=== PATIENT | male | born 1940 | race Caucasian/White ===

== ENCOUNTER 2017-06-11 14:10 | Day surgery (SDC) | payer MEDICARE ==
[~2017-06-11] VITALS: Ht 177.8 cm; Wt 130.0 kg
[~2017-06-11 14:10] MED LIST: ACET325C PO; ATOR20TA PO; DOCU240C41 PO; DOXY100C2 PO; ERGO2000 PO; LOSA1TAB69 PO; Lactated Ringer's 1,000 ML IV ONE; OMEP20CA11 PO
[2017-06-11] MEDS ORDERED: fentaNYL-PF 50 mCg/mL 2 mL Inj ONE (14:11)
[2017-06-11] MEDS ORDERED: Propofol 10 mg/mL 20 mL Inj ONE (14:11)
[2017-06-11 14:31] VITALS: BP 118/72; PULSE 74; RESP 16; O2SAT 96
--- NOTE | 2017-06-11 16:09 | PCM.ENDEGD ---
EGD Date of Service: Jun 11, 2017 Physician Antonio Ashby MD Pre Procedure Diagnosis: Abdominal pain Post Procedure Dx & Findings: Gastric ulcer and duodenal ulcer and duodenal polyp Procedure Esophagogastroduodenoscopy PROCEDURE IN DETAIL: After proper sedation, Olympus video endoscope was inserted into patient's mouth and esophagus was successfully intubated. Scope introduced esophagus. Esophagus showed normal shiny whitish mucosa consistent with squamous cell component. Z line was intact at 45 cm from the incisors. Scope further advanced to the stomach. Stomach show proximal gastritis as well as antral gastritis cauterized by edema and redness. Patient also had 1 cm superficial ulcer between the body and the antrum of the stomach. Clean-based. Multiple biopsies obtained on the ulcer as well as the gastritis.. Cardia fundus body antrum pylorus were all visualized. Retroflexion was done. Stomach was easily inflated and deflatable using air. Scope further events to the distal duodenum. The second part of the duodenum had a 3 mm superficial ulcer. This was biopsied. In the distal duodenum there was a 1 mm polyp which was removed completely using cold forceps. Impression Gastric ulcer and gastritis Duodenal ulcer Duodenal polyp Recommendation Stop NSAIDs Prilosec 20 once a day Presedation Assessment Risks and Benefits Informed consent was obtained from the patient after all risks and benefits including but not limited to drug reaction, infection, pain, bleeding, perforation, as well as alternatives were discussed. Patient monitoring Continuous pulse oximetry, cardiac monitoring, blood pressure monitoring, IV access, and oxygen at 2L per nasal cannula. Complications There were no periprocedural complications identified. Post Procedure Plan Post Procedure Recommendations 1. Restrict activities today. 2. Resume normal activities in the morning. 3. Resume medications. 4. GERD behavioral modification: - Avoid fatty, acidic, spicy, large meals - Do not lie down after meals - Do not eat or drink anything for at least 2 1/2 hours before going to bed at night - Discontinue tobacco and alcohol - Decrease or avoid caffeine - Avoid chocolate and mints - Decrease weight - Avoid aspirin and non steroidal anti-inflammatory agents (NSAID) such as Aleve, Advil, Mobic, Naproxen, Ibuprofen, etc 5. Add proton pump inhibitor. Take 30 minutes before 1st meal of the day. 6. Patient informed of normal post procedure side effects as bloating, drowsiness, blood streaking in the stool 7. If gastric biopsy reveal H.pylori, continue with appropriate treatment 8. If small bowel biopsy reveals celiac, continue with appropriate treatment 9. Please don't hesitate to call me with any questions Antonio Ashby MD Jun 11, 2017 16:09
--- NOTE | 2017-06-11 16:11 | PCM.ENDCOL ---
Colonoscopy Date of Service: Jun 11, 2017 Physician Antonio Ashby MD Pre Procedure Diagnosis: Screening Post Procedure Dx & Findings: Polyps hemorrhoids Procedure Colonoscopy PROCEDURE IN DETAIL: Prep adequate Withdrawal time 18 minutes After unremarkable rectal examination the Olympus video colonoscope was inserted patient's anal canal and was advanced to cecum. Landmarks were identified including the ileocecal valve and appendiceal orifice. Scope was withdrawn systematically. Visualized colonic mucosa showed healthy shiny mucosa with normal healthy-appearing vasculature. In the transverse colon, there were 2 polyps. One was 1 mm in size which was removed with cold completely using cold forceps. The other one was 3 mm in size which was removed completely using cold snare. In the descending colon, there was a 3 mm polyp which was removed completely using cold snare. In the sigmoid colon there was a 1 mm polyp which was removed completely using cold forceps. There was a 1 cm polyp which was removed completely using hot snare. In the rectum retroflexion was done which showed hemorrhoids. Anal canal was inspected carefully on the way out and hemorrhoids noted. Impression Polyp 5 status post complete removal. Largest polyp was 1 cm in size. Hemorrhoids Recommendation Repeat colonoscopy 3 years Presedation Assessment Risks and Benefits Informed consent was obtained from the patient after all risks and benefits including but not limited to drug reaction, infection, pain, bleeding, perforation, as well as alternatives were discussed. Patient monitoring Continuous pulse oximetry, cardiac monitoring, blood pressure monitoring, IV access, and oxygen at 2L per nasal cannula. Complications There were no periprocedural complications identified. Post Procedure Plan Post Procedure Recommendations 1. Restrict activities today. 2. Resume normal activities in the morning. 3. Resume medications. 4. Patient informed of normal post procedure side effects as bloating, drowsiness, blood streaking in the stool. 5. average risk CRCS. If colon polyps come back as: -Hyperplastic- can repeat colonoscopy in 10 years -Tubular adenoma- repeat colonoscopy in 5 years -Tubulovillous/villous adenoma- repeat colonoscopy in 3 years -If any dysplasia- return to clinic as soon as possible 6. Please don't hesitate to call me with any questions. Antonio Ashby MD Jun 11, 2017 16:11
[2017-06-11 16:12] VITALS: BP 82/49; PULSE 64; RESP 16; O2SAT 96
[2017-06-11 16:22] VITALS: BP 106/60; PULSE 67; RESP 16; O2SAT 98
[2017-06-11 16:42] VITALS: BP 118/69; PULSE 62; RESP 16; O2SAT 98
--- NOTE | 2017-06-11 18:20 | PCM.HPANE ---
Patient Data Date of Service: Jun 11, 2017 (0700) Surgeon Admitting Provider: Attending Provider:Antonio Ashby MD Primary Care Physician:Misbah El MD Other Provider:Savita Garcia Anesthesia Reason for Visit Abdominal Pain Of Unknow Cause Ht/WT & BMI Height (Feet): 5 Height (Inches): 10 Weight (Kilograms): 130 Body Mass Index 41.00 Allergies Coded Allergies: codeine (Verified Allergy, Unknown, 06/11/17) Past Anesthesia History Anesthesia History: Denies:: Abnormal Airway, Anesthesia Reactions, Difficult Intubation, Fam Anesthesia Reaction, Fam Malignant Hypertherm, Malignant Hyperthermia MRSA MRSA: No Medications Reported Medications Docusate Calcium (Stool Softener)240 Mg [id number] Mg PO HS PRN For Constipation 06/10/17 Ergocalciferol (Vitamin D2) (Vitamin D2)2,000 Unit Tablet2,000 Unit PO WEEKLY 06/10/17 Losartan/HCTZ 50-12.5 mg 1 Each Tablet1 Tablet PO DAILY Ref 0 06/10/17 Atorvastatin (Lipitor)20 Mg Eljjmy53 Mg PO DAILY Ref 0 06/10/17 Acetaminophen 325 Mg [id number] Mg PO DAILY 06/10/17 Discontinued Reported Medications Omeprazole 20 Mg Capsule.dr20 Mg PO DAILY Ref 0 06/10/17 Doxycycline Hyclate 100 Mg [id number] Mg PO DAILY 06/10/17 Losartan Potassium 50 Mg Umsygd77 Mg PO DAILY 06/10/17 History History of ENT Problems?: No HEENT History: Denies:: Abnormal Airway Difficult Intubation Hearing Problem Denture Type: None Teeth Condition: Within Normal Limits Hx of Heart Problems?: Yes Cardiovascular History: Positive for:: Hypertension (hyperlipidemia) Denies:: AICD Pacemaker Valvular Heart Disease Hx of Respiratory Problem?: No Respiratory History: Denies:: Asthma COPD Chest Surgery Cough Dyspnea Emphysema Hemoptysis Oxygen Administration Pneumonia Pulmonary Embolism Tuberculosis Use of C-PAP Machine Use of Inhalers / NEBS Hx Neurologic Problems?: No Neurological History: Denies:: CVA Hx of GI Problems?: No Hx of Problems?: No Hx Musculoskeletal Problems?: No Hx Surgeries?: Yes (prostate ca-prostatectomy, one kidney, servando, back, tonsils , hemorrhoidecto) Hx Alcohol Use: Yes (socially) Stop/Bang Treated for Sleep Apnea?: Yes Do You Have a CPAP Machine?: No (uses mouth piece) Risk Assessment Category Category 1A: Patient has history of documented sleep apnea, and HAS NOT received any narcotic, sedative or anesthesia administration during this stay. Category 1B: Patient has history of documented sleep apnea, and HAS received any narcotic , sedative or anesthesia administration during this stay Category 2: Patient has SUSPECTED Obstructive Sleep Apnea, and HAS received any narcotic , sedative or anesthesia administration during this stay. Category 3: Patient has SUSPECTED Obstructive Sleep Apnea and HAS NOT received narcotic, sedative or anesthesia administration during this stay. Category 4: Outpatient in Procedural Areas with known sleep apnea or who screen positive for High Risk via the STOP/BANG questionnaire. Exam Exam Vital Signs Vital Signs Date Time Temp Pulse Resp B/P Pulse Ox O2 Delivery O2 Flow Rate FiO2 06/11/17 16:42 62 16 118/69 98 Room Air 06/11/17 16:22 67 16 106/60 98 Room Air 06/11/17 16:12 64 16 82/49 96 Room Air 06/11/17 14:31 36.6 74 16 118/72 96 Room Air General Appearance: Alert, Oriented X3, Cooperative, No Acute Distress HEENT/AIRWAY: MP 2 Lungs: Clear to Auscultation Heart: Exam Unremarkable Meds/Labs/Diagnostics Admission Meds Current Medications Lactated Ringer's (Lr) 1,000 ml @ 10 mls/hr Q24H ONCE IV Last administered on 06/11/17t 15:34; Start 06/11/17 at 06:00; Stop 06/12/17 at 05:59 Plan Impression Patient chart reviewed, patient interviewed and anesthestic plan with risks, benefits, and alternatives discussed, and informed consent obtained. ASA Physical Status: ASA3 Severe Disease Anesthetic Plan: MAC Bene/Risks/Altern/Consents: Yes HP Complete Prior to Induction: Yes Santy Goldberg MD Jun 11, 2017 18:20
--- NOTE | 2017-06-16 13:26 | PATH ---
SURGICAL PATHOLOGY Attending Physician:Antonio Ashby M.D. CASE STATUS: Signed Out PATIENT NAME: HEIDY OLIVAS PID: [id number] : 1940 DATE COLLECTED:06/11/2017 00:00 SPECIMEN: 1: Duodenum, Biopsy 2: Duodenum, Biopsy 3: Gastric, Biopsy 4: Colon, Polyp 5: Colon, Polyp 6: Colon, Polyp CLINICAL HISTORY: 1). DUODENAL ULCER BIOPSY 2). DUODENAL POLYP BIOPSY 3). GASTRIC EROSION BIOPSY AND RULE OUT H.PYLORI 4). TRANSVERSE POLYP X2 5). DESCENDING POLYP X1 6). SIGMOID POLYP X2 FINAL DIAGNOSIS: 1.DUODENAL ULCER, BIOPSY: PORTION OF DUODENAL MUCOSA WITH FOCAL EROSION AND OTHERWISE NO DIAGNOSTIC ABNORMALITY. Negative for active inflammation, dysplasia and malignancy. 2.DUODENAL POLYP, BIOPSY: POLYPOID PORTION OF DUODENAL MUCOSA WITH FOCAL HYPERPLASTIC MUCOSAL FEATURES. 3.GASTRIC EROSION, BIOPSY: PORTIONS OF GASTRIC BODY-TYPE MUCOSA WITH CHRONIC ACTIVE GASTRITIS. No definite H. pylori organisms identified by H&E stain and immunohistochemistry studies. Negative for intestinal metaplasia, dysplasia, and malignancy. 4.TRANSVERSE COLON, POLYPS, BIOPSIES: PORTIONS OF TUBULAR ADENOMA X3; NEGATIVE FOR HIGH-GRADE DYSPLASIA. 5.DESCENDING COLON, POLYP, BIOPSY: TUBULAR ADENOMA; NEGATIVE FOR HIGH-GRADE DYSPLASIA. 6.SIGMOID COLON, POLYPS X2, BIOPSIES: MULTIPLE (APPOXIMATELY 6) PORTIONS OF TUBULAR ADENOMA; NEGATIVE FOR HIGH-GRADE DYSPLASIA. ICD10 K63.5 NOTE: IMMUNOHISTOCHEMISTRY: Block 3A: H. pylori: Negative * This test was developed and its performance characteristics determined by [employer]. It has not been cleared or approved by the [place]. Food and Drug Administration. The FDA has determined that such clearance or approval is not necessary. This test is used for clinical purposes. It should not be regarded as investigational or for research. GROSS DESCRIPTION: The specimen is received in six formalin filled containers labeled with the patient's name. 1). The specimen is labeled "duodenal ulcer" and consists of a 0.2 x 0.2 x 0.2 CM portion of tissue which is entirely submitted in cassette 1A. 2). The specimen is labeled "duodenal polyp" and consists of a 0.1 x 0.1 x 0.1 CM portion of tissue which is entirely submitted in cassette 2A. 3). The specimen is labeled "gastric erosion" and consists of multiple portions of tissue which aggregate to 0.3 x 0.3 x 0.2 CM. The specimen is entirely submitted in cassette 3A. 4). The specimen is labeled "transverse polyp" and consists of 2 portions of tissue which aggregate to 0.3 x 0.3 x 0.2 CM. The specimen is entirely submitted in cassette 4A. 5). The specimen is labeled "descending polyp" and consists of a 0.2 x 0.2 x 0.2 CM portion of tissue which is entirely submitted in cassette 5A. 6). The specimen is labeled "sigmoid polyp X2" and consists of multiple portions of tissue which aggregate to 0.5 x 0.5 x 0.4 CM. The specimen is entirely submitted in cassette 6A. 06/13/2017DC MICRO DESCRIPTION: See diagnosis. ICD-9 CODES: CPT CODES: 1: 67793 2: 92723 3: 93895, 83328 4: 95656 5: 03313 6: 67645 Electronically Signed Out Rupali Meyer MD [facility] [address], [place] [address] Technical component performed at [facility], [address], [place], [address]
== END 2017-06-11 23:59 | disposition home or self-care (01) ==
LOC: END 14:10 → EDUNIT# 15:00 → END 23:59
PROVIDERS: ATTEND Internal Medicine
DX: Z12.11 Encounter for screening for malignant neoplasm of colon (principal); D12.3 Benign neoplasm of transverse colon; D12.4 Benign neoplasm of descending colon; D12.5 Benign neoplasm of sigmoid colon; K64.8 Other hemorrhoids; K29.50 Unspecified chronic gastritis without bleeding; K31.7 Polyp of stomach and duodenum; K26.9 Duodenal ulcer, unspecified as acute or chronic, without hemorrhage or perforation; K25.9 Gastric ulcer, unspecified as acute or chronic, without hemorrhage or perforation
CPT/HCPCS: 43239; 45380; 45385; J3010; J7120